=== PATIENT | male | born 1965 | race Caucasian/White ===

== ENCOUNTER 2020-03-15 09:32 | Outpatient (CLI) | payer BC, SELFPAY ==
[2020-03-15 11:03] LABS: Basophils Absolute Auto 0.1 K/mm3 (0.0-0.1); Eosinophils Absolute Auto 0.1 K/mm3 (0-0.3); Eosinophils Percent Auto 1.5 % (0-4.4); Hematocrit 46.1 % (42.0-52.0); Hemoglobin 15.4 g/dL (14.0-18.0); Immature Granulocyte Absolute 0.02 K/mm3 (0.00-0.031); Immature Granulocyte Percent A 0.3 % (0-0.5); Lymphocytes Absolute Auto 2.61 K/mm3 (0.9-3.2); Lymphocytes Percent Auto 38.3 % (18.3-44.2); Mean Corpuscular HGB Conc 33.4 g/dl (32-36); Mean Corpuscular Hemoglobin 29.8 pg (26-34); Mean Corpuscular Volume 89.3 fl (80-100); Mean Platelet Volume 8.6 fl (7.4-10.4); Monocytes Absolute Auto 0.4 K/mm3 (0.1-0.6); Monocytes Percent Auto 5.4 % (2.6-8.5); Neutrophils Absolute Auto 3.6 K/mm3 (1.3-6.7); Neutrophils Percent Auto 53.5 % (45.5-73.1); Platelet Count Result 190 k/mm3 (150-375); Red Blood Count 5.16 M/mm3 (4.6-6.20); White Blood Count 6.8 K/mm3 (4.5-10.0)
[2020-03-15 11:16] LABS: Alanine Aminotransferase 46 U/L (4-50); Albumin Level 4.5 g/dL (3.5-5.1); Alkaline Phosphatase 120 U/L (38-126); Anion Gap 7 mmol/L (8-16); Aspartate Amino Transferase 38 U/L (17-59); Bilirubin,Total 0.5 mg/dL (0.2-1.3); Blood Urea Nitrogen 20 mg/dL (9-20); Calcium 9.5 mg/dL (8.4-10.2); Carbon Dioxide 32 mmol/L (22-30); Chloride 104 mmol/L (98-107); Cholesterol 149 mg/dL (0-200); Estimated Glomerular Filt Rate > 60; Glucose 99 mg/dL (75-110); HDL Direct 40 mg/dL; Potassium 4.7 mmol/L (3.4-5.0); Sodium 143 mmol/L (137-145); Triglycerides 110 mg/dL (<150); Uric Acid 6.2 mg/dL (3.5-8.5)
[2020-03-15 11:26] LABS: LDL Cholesterol Direct 79 mg/dL
[2020-03-15 12:14] LABS: Prostate Specific Antigen 1.7 ng/mL (< OR = 4.0)
== END 2020-03-15 09:33 | disposition home or self-care (01) ==
LOC: ANHLAB 09:35
PROVIDERS: PCP Internal Medicine; Visit Provider Internal Medicine
DX: Z12.5 Encounter for screening for malignant neoplasm of prostate (principal); M1A.09X0 Idiopathic chronic gout, multiple sites, without tophus (tophi); F41.9 Anxiety disorder, unspecified; E78.2 Mixed hyperlipidemia
CPT/HCPCS: 36415; 80053; 80061; 84153; 84443; 84550; 85025; G0103

== ENCOUNTER 2020-07-15 15:37 | Outpatient (CLI) | payer BC, SELFPAY ==
--- NOTE | ~2020-07-15 | XR_ITS ---
EXAMINATION: XR shoulder RT min 2V DATE: 07/15/2020 15:59 INDICATION: Right shoulder pain TECHNIQUE: AP internally and externally rotated, AP oblique externally rotated and axillary views of the right shoulder were obtained. COMPARISON: None FINDINGS: Normal alignment. No fracture.Mild glenohumeral and acromioclavicular osteoarthritis. Right lung is clear with no airspace opacities, pleural effusion or pneumothorax. Soft tissues are unremarkable. IMPRESSION: Mild right acromioclavicular and glenohumeral osteoarthritis. Reviewed, dictated and finalized at location B. IMILE OPERATOR
== END 2020-07-15 15:38 | disposition home or self-care (01) ==
LOC: ANHIMG 15:44
PROVIDERS: PCP Internal Medicine; Visit Provider Internal Medicine
DX: M19.011 Primary osteoarthritis, right shoulder (principal)
CPT/HCPCS: 73030

== ENCOUNTER 2020-07-18 09:00 | Outpatient (CLI) | payer BC, SELFPAY | END 2020-07-18 09:01 | disposition home or self-care (01) | LOC: ANHCOVIDVC 09:00 | PROVIDERS: PCP Internal Medicine | DX: Z23 Encounter for immunization (principal) | CPT/HCPCS: 0001A; 91300 ==

== ENCOUNTER 2020-07-20 06:35 | Outpatient (CLI) | payer BC, SELFPAY ==
--- NOTE | ~2020-07-20 | MR_ITS ---
EXAMINATION: [facility] EXAM DATE: 07/20/2020 07:44 INDICATION: M54.16 - Radiculopathy, lumbar region. Low back and right hip pain. TECHNIQUE: Multi-sequential, multiplanar MR images of the lumbar spine were obtained without contrast . Sagittal T1, T2, T2 fat saturation images. Axial T2 weighted images. There is no prior study for comparison. FINDINGS: There is moderate disc disease L5-S1, mild L3-L5. The conus medullaris terminates at the L1 level and has normal signal intensity and morphology. The vertebral bodies are aligned in the AP dim ension. There are no suspicious marrow signal abnormalities. Paraspinal soft tissue is unremarkable. Level by level evaluation: T12-L1: Disc does not extend beyond the endplate margin. Facet arthropathy: Mild. Neural foraminal stenosis: No stenosis. Central canal stenosis: No stenosis. L1-L2: Disc does not extend beyond the endplate margin. Facet arthropathy: Mild. Neural foraminal stenosis: No stenosis. Central canal stenosis: No stenosis. L2-L3: Disc does not extend beyond the endplate margin. Facet arthropathy: Mild. Neural foraminal stenosis: No stenosis. Central canal stenosis: No stenosis. L3-L4: There is a mild diffuse disc bulge. Facet arthropathy: Mild to moderate. Neural foraminal stenosis: Mild right. Central canal stenosis: No stenosis. L4-L5: There is a mild diffuse disc bulge. Facet arthropathy: Mild to moderate. Neural foraminal stenosis: Mild to moderate bilateral. Central canal stenosis: Mild. L5-S1: There is a mild diffuse disc bulge. Facet arthropathy: Mild to moderate. Neural foraminal stenosis: Mild to moderate bilateral. Central canal stenosis: No stenosis. IMPRESSION: Overall mild to moderate lower lumbar spondylosis. Reviewed, dictated and finalized at location B. [employer]OR OF EMPLOYEE DEVELOPMENT
== END 2020-07-20 06:36 | disposition home or self-care (01) ==
PROVIDERS: PCP Internal Medicine; Visit Provider Internal Medicine
DX: M47.27 Other spondylosis with radiculopathy, lumbosacral region (principal); M48.07 Spinal stenosis, lumbosacral region; M47.25 Other spondylosis with radiculopathy, thoracolumbar region; M48.05 Spinal stenosis, thoracolumbar region
CPT/HCPCS: 72148

== ENCOUNTER → 2020-08-02 02:51 | Outpatient (CLI) | payer BC, SELFPAY ==
[2020-08-02 18:08] LABS: SARS-CoV-2 RNA PCR Negative
== END ==
PROVIDERS: PCP Internal Medicine; Visit Provider Internal Medicine Gastroenterology
DX: Z01.812 Encounter for preprocedural laboratory examination (principal); Z20.822 Contact with and (suspected) exposure to COVID-19
CPT/HCPCS: C9803; U0003; U0005

== ENCOUNTER 2020-08-05 00:35 | Day surgery (SDC) | payer BC, SELFPAY ==
[2020-06-16 10:53] VITALS: BMI 31.9
[2020-08-05 07:09] VITALS: BP 135/66; PULSE 67; RESP 17; TEMP 36.1; O2SAT 97; BMI 31.8
[2020-08-05] MEDS: LACTATED RINGERS 1,000 ML 150 ML IV CONT (07:13)
--- NOTE | 2020-08-05 08:15 | WPDANESEPPF ---
Anes - Initial Pre Proc Eval Procedure: Operation Date: 08/05/20 08:30 Proposed Procedures p Screening Colonoscopy - Iker Zamora MD Date/Time: 08/05/20 08:15 Surgeon: Iker Zamora MD Pre Op Diagnosis: Neoplasm Screening/ Hx Colon Polyps Patient Data Age: 55 Gender: M Height: 5 ft 11 in Weight: 103.8 kg Last Vital Signs Temp 96.9 F L 08/05/20 07:09 Pulse 67 08/05/20 07:09 Resp 17 08/05/20 07:09 BP 135/66 08/05/20 07:09 Pulse Ox 97 08/05/20 07:09 Allergies Allergy/AdvReac Type Severity Reaction Status Date / Time No Known Allergies Allergy Verified 08/05/20 07:08 Home Medications Medication Instructions Recorded Confirmed Type allopurinol 300 mg tablet 300 mg PO DAILY #90 tablet 09/11/19 08/05/20 Rx omeprazole 40 mg capsule,delayed See Rx Instructions .ROUTE 07/11/20 08/05/20 Rx release .COMPLEX #90 each Patient hx anesthesia problems: none Family hx anesthesia problems: none PMFSH Past Medical History Medical History (Updated 08/01/20 @ 16:19 by LILI Harmon) Anal fissure Anal skin tag Anxiety Benign non-nodular prostatic hyperplasia with lower urinary tract symptoms Encounter for other specified surgical aftercare Facet arthritis of lumbar region Gastroesophageal reflux disease Gout of multiple sites Hypersomnia Lumbar radiculopathy Major depressive disorder, recurrent episode, unspecified Mixed hyperlipidemia Obesity (BMI 35.0-39.9 without comorbidity) Paraspinal muscle spasm Right rotator cuff tear Right shoulder pain Sciatica Shoulder pain Tension headache Vaccine counseling Surgical History Surgical History (Updated 08/01/20 @ 13:24 by LILI Harmon) S/P rotator cuff repair Family History Family History Father Malignant neoplasm of prostate Social History Social History (Updated 08/01/20 @ 10:25 by Mackenzie Spear) Smoking status: Never smoker Alcohol intake: current Living arrangements: with family Gender identity (if verbalized by the patient): Male Spiritual care concerns: No Anes - Eval Final PreProcedure Day of Procedure 08/05/20 08:15 Patient weight: overweight Heart: regular rate and rhythm Lungs: clear to auscultation Airway: Mallampati scale class II Neurological: alert and oriented Last oral intake: >/= 8 hours ASA classification: II Emergent: no Anesthetic plan: proceed Anesthesia type and monitoring: general GIVS and standard monitoring Informed Consent: The patient's anesthetic plan and its attendant risks and benefits were discussed with the patient/family/POA. Questions were solicited and answers provided to the satisfaction of the patient/family/POA.
--- NOTE | 2020-08-05 08:19 | PM.HPGS ---
History of Present Illness History of Present Illness Consent: Risks, benefits, and alternatives have been discussed and questions answered. Patient agrees to proceed with procedure. Chief complaint: Neoplasm Screening/ Hx Colon Polyps Narrative: Tay Flores is a 55 year old male with colon polyps about 6 years ago. Review of Systems Constitutional: Constitutional: Denies headache(s) and Denies weakness Eyes: Eyes: Denies blurry vision ENT: Reports Normal hearing present, Denies headache(s) and Denies neck pain Cardiovascular: Cardiovascular: Denies chest pain and Denies dyspnea Respiratory: Respiratory: Denies dyspnea Gastrointestinal: Gastrointestinal: Reports no additional gastrointestinal complaints Genitourinary: Genitourinary: Denies dysuria Musculoskeletal: Musculoskeletal: Denies neck pain Integumentary/Breasts: Skin/Breast: Denies dry skin Neurologic: Reports Normal hearing present, Denies headache(s) and Denies weakness Psychiatric: Psychiatric: Denies anxiety Endocrine: Endocrine: Denies change in body appearance Hematologic/Lymphatic: Hematologic/Lymphatic: Denies easy bleeding Allergic/Immunologic: Allergic/Immunologic: Denies urticaria PMF Past Medical History Medical History (Updated 08/05/20 @ 08:20 by Iker Zamora MD) Adenomatous colon polyp Anal fissure Anal skin tag Anxiety Benign non-nodular prostatic hyperplasia with lower urinary tract symptoms Encounter for other specified surgical aftercare Facet arthritis of lumbar region Gastroesophageal reflux disease Gout of multiple sites Hypersomnia Lumbar radiculopathy Major depressive disorder, recurrent episode, unspecified Mixed hyperlipidemia Obesity (BMI 35.0-39.9 without comorbidity) Paraspinal muscle spasm Right rotator cuff tear Right shoulder pain Sciatica Shoulder pain Tension headache Vaccine counseling Surgical History Surgical History (Updated 08/01/20 @ 13:24 by LILI Harmon) S/P rotator cuff repair Family History Family History Father Malignant neoplasm of prostate Social History Social History (Updated 08/01/20 @ 10:25 by Mackenzie Spear) Smoking status: Never smoker Alcohol intake: current Living arrangements: with family Gender identity (if verbalized by the patient): Male Spiritual care concerns: No Meds Home Medications and Allergies Home Medications Medication Instructions Recorded Confirmed Type allopurinol 300 mg tablet 300 mg PO DAILY #90 tablet 09/11/19 08/05/20 Rx omeprazole 40 mg capsule,delayed See Rx Instructions .ROUTE 07/11/20 08/05/20 Rx release .COMPLEX #90 each Allergies Allergy/AdvReac Type Severity Reaction Status Date / Time No Known Allergies Allergy Verified 08/05/20 07:08 Vital Signs Vital Signs - 24 hr 08/05/20 07:09 Temperature 96.9 F L Pulse Rate 67 Respiratory Rate 17 Blood Pressure 135/66 Pulse Oximetry 97 Exam Const: General: comfortable and no acute distress HENMT: General nose exam: Normal nares present Eyes: General: appearance normal, both eyes and all related structures Neck: Neck: no JVD Resp: Auscultation: clear to auscultation bilaterally Cardio: Rate: regular rate Rhythm: regular rhythm GI: Inspection: non-distended GI Palp: Yes Soft to palpation Skin: General skin exam: normal color Neuro: General: gait normal Speech: normal speech Extrem: General: normal to inspection Psych: Mental Status: mental status grossly normal Assessment and Plan Assessment and plan (1) Adenomatous colon polyp: Code(s): D12.6 - Benign neoplasm of colon, unspecified Status: Acute Assessment and Plan: proceed with colonoscopy
[2020-08-05 08:46] VITALS: BP 106/79; PULSE 65; RESP 23; O2SAT 98
[2020-08-05 08:56] VITALS: BP 112/68; PULSE 58; RESP 15; O2SAT 97
[2020-08-05 09:06] VITALS: BP 109/70; PULSE 54; RESP 15; O2SAT 100
== END 2020-08-05 09:15 | disposition home or self-care (01) ==
PROVIDERS: PCP Internal Medicine; Visit Provider Internal Medicine Gastroenterology
PROC: 0DJD8ZZ Inspection of Lower Intestinal Tract, Via Natural or Artificial Opening Endoscopic (ICD-10-PCS; CPT 45378; principal; 2020-08-05 08:30)
DX: Z12.11 Encounter for screening for malignant neoplasm of colon (principal); D12.5 Benign neoplasm of sigmoid colon; K64.8 Other hemorrhoids; K21.9 Gastro-esophageal reflux disease without esophagitis; E66.9 Obesity, unspecified; Z68.31 Body mass index [BMI] 31.0-31.9, adult
CPT/HCPCS: 45385; 88305; J2704; J7120

== ENCOUNTER 2020-08-08 09:15 | Outpatient (CLI) | payer BC, SELFPAY | END 2020-08-08 09:16 | disposition home or self-care (01) | LOC: ANHCOVIDVC 09:15 | PROVIDERS: PCP Internal Medicine | DX: Z23 Encounter for immunization (principal) | CPT/HCPCS: 0002A; 91300 ==

== ENCOUNTER → 2020-08-16 17:58 | Outpatient (CLI) | payer BC, SELFPAY ==
--- NOTE | ~2020-08-16 | MR_ITS ---
EXAMINATION: MR shoulder RT wo con DATE: 08/16/2020 19:04 INDICATION: Right shoulder pain. TECHNIQUE: Magnetic resonance imaging (MRI) of the right shoulder was performed without intravenous c ontrast. Sequences included axial PD-weighted FS FSE, coronal oblique PD-weighted FS FSE and T2-weigh anthony FS FSE, and sagittal oblique T2-weighted FS FSE and T1-weighted FSE. COMPARISON: Right shoulder radiographs 07/15/2020 FINDINGS: Coracoacromial arch: The acromion undersurface is curved in morphology with anterior hook (type III). There is severe acro mioclavicular joint osteoarthritis including inferiorly directed osteophytes. There is mild subacromi al/subdeltoid bursitis. Rotator cuff: There is severe supraspinatus and infraspinatus tendinopathy. There is a bursal sided partial-thickne ss tear of anterior supraspinatus tendon measuring 12 mm anterior to posterior by 3 mm proximal to di stal by 60% tendon thickness. Teres minor tendon is normal. There is severe subscapularis tendinopath y. There is no asymmetric fatty atrophy of the rotator cuff muscle bellies. Biceps tendon and glenoid labrum: Biceps tendon is in bicipital groove. There is mild intra-articular biceps tendinopathy. There is a t ear of posterior labrum from 8:00 to 10:00. Fluid: There is no glenohumeral joint effusion. Bones/cartilage: There is shallow partial-thickness cartilage loss of glenoid, worst at the central articular surface. There is cartilage surface irregularity of humeral head. IMPRESSION: 1. Severe rotator cuff tendinopathy with bursal sided partial-thickness tear of supraspinatus tendon. 2. Mild glenohumeral joint chondrosis. 3. Severe acromioclavicular joint osteoarthritis. 4. Mild intra-articular biceps tendinopathy. 5. Mild subacromial/subdeltoid bursitis. Reviewed, dictated and finalized at location A.
== END ==
PROVIDERS: Visit Provider Nurse Practitioner Family
DX: S43.491A Other sprain of right shoulder joint, initial encounter (principal); M75.51 Bursitis of right shoulder
CPT/HCPCS: 73221

== ENCOUNTER 2021-05-09 08:48 | Outpatient (RCR) | payer BC, SELFPAY ==
[2021-05-09] MEDS: ACETAMINOPHEN 325 MG TABLET 650 MG PO (15:35)
[2021-05-09] MEDS: diphenhydrAMINE HCl CAP 25 MG CAPSULE PO (15:36)
[2021-05-09] MEDS: FAMOTIDINE 20 MG TABLET PO (15:36)
[2021-05-09 15:39] VITALS: BP 110/67; PULSE 95; RESP 20; TEMP 36.2; O2SAT 96
[2021-05-09 16:42] VITALS: BP 96/56
== END 2021-05-09 16:00 | disposition home or self-care (01) ==
LOC: AMCINF 08:48
PROVIDERS: PCP Nurse Practitioner; Visit Provider Internal Medicine Hematology & Oncology
DX: U07.1 COVID-19 (principal); I10 Essential (primary) hypertension
CPT/HCPCS: A9270; M0243; Q0244

== ENCOUNTER 2021-06-29 15:02 | Outpatient (CLI) | payer BC, SELFPAY ==
--- NOTE | 2021-06-29 15:00 | ECG_ITS ---
Measurements Intervals [place] Rate: 75 P: 66 SC: 175 QRS: 23 QRSD: 93 T: 38 QT: 362 QTc: 405 Interpretive Statements SINUS RHYTHM BASELINE ARTIFACT- I, II, III, AVR, AVL, AVF NORMAL ECG Electronically Signed On 06-29-2021 15:31:59 BULK DELIVERY DRIVER by Dave Olivia D.O.
== END 2021-06-29 15:03 | disposition home or self-care (01) ==
PROVIDERS: PCP Internal Medicine; Visit Provider Orthopaedic Surgery
DX: Z01.810 Encounter for preprocedural cardiovascular examination (principal); I10 Essential (primary) hypertension
CPT/HCPCS: 93005

== ENCOUNTER 2021-07-05 01:17 | Day surgery (SDC) | payer BC, SELFPAY ==
[2021-06-28 14:52] VITALS: BMI 30.7
--- NOTE | 2021-06-28 15:29 | PC.NURSE ---
Report to the Outpatient Waiting Room, entrance under the green pavilion located off [facility], at time __8:30 on date _07/05/21. OR Time: 10:30. IF THERE IS ANY ADJUSTMENT IN YOUR SURGERY TIME, YOU WILL BE NOTIFIED THE DAY BEFORE ON 07/04/21 AFTERNOON. - You and your visitor will be asked a series of questions to screen for COVID 19 for your protection. - A mask is required within the hospital. Preoperative COVID Testing Requirements: No COVID Test needed if: (proof is required; if not received patient will have Rapid Test prior to entry) - Patient has received COVID Vaccine at least 14 days prior to procedure date or - Patient has positive COVID test result within last 90 days of surgery date. COVID Test needed if above criteria is not met If not COVID vaccinated a COVID test must be conducted within 72 hours of surgery and patient is asked to isolate self from time of testing until procedure. You will go to the [facility] for your COVID testing. The [facility] is located at the corner of [address] [facility]. You will only be called if COVID results are positive and your surgeon may reschedule your elective surgery date. Patients may have clear liquids (water, carbonated beverages, clear teas, apple juice) until 3 hours prior to surgery with a maximum of 20 ounces. - No food from midnight until time of surgery - Infants may have breast milk until 4 hours before surgery, infant formula 6 hours prior to surgery. - Children will be allowed to drink immediately following surgery. If applicable, please bring a bottle or sippy cup to assist with drinking. Juice, water, soda, and popsicles are readily available. For infants on formula, please bring formula the day of surgery. Pacifiers are allowed. Take the following medications with a SIP of water the morning of surgery: __FUOXETINE Medications to discontinue per physician N/A Date to take last dose__N/A Please no make-up, nail andorran, hairspray, perfume, deodorant, or body powder the day of surgery. No jewelry (including any body piercings) or valuables the day of surgery, leave them at home. Please take a shower or bath the night before, or the morning of, surgery with an antibacterial soap [CHLORHEXIDINE (HIBICLENS)]. Wear comfortable, loose fitting clothing. Children are encouraged to wear pajamas. - Jewelry must be removed prior to entering the operating room. Rings and piercings that are not removed may be cut off. - The hospital will not accept responsibility for valuables. - Please leave all valuables, including medications, at home the day of surgery. If you are going home after surgery, a licensed delivery driver/supervisor must drive you home. - NO public transportation without another adult. - We recommend that an adult stay with you for 24 hours following discharge. - We also recommend that you do not drive, make important decision, drink alcoholic beverages, or take any drugs that were not prescribed by your health care provider for at least 24 hours after your discharge time. For Pediatric surgeries, we recommend two adults accompany the child home (only one inside the building at this time). One visitor will be allowed to accompany the patient into the hospital. Patients visitor will be instructed to remain with patient at all times or leave the building. We will allow the visitor to come back to the postoperative area when patient is ready. Follow any additional instructions given to you from your surgeon. Telephone instructions given to _FREYA and asked if any additional questions and then verbalized understanding. Patient advised to call surgeon office or pre surgery nurse liaison [phone] if any additional questions.
[2021-07-05] VITALS (7 sets, daily range): BP systolic 109–135; BP diastolic 51–78; PULSE 54–70; RESP 15–18; TEMP 36.1–36.4; O2SAT 95–100
--- NOTE | 2021-07-05 07:24 | WPDHPUPDATE1 ---
History and Physical Update Update Date/Time: 07/05/21 07:24 History and Physical has been reviewed, including an updated exam of the patient. There are NO changes in the patient's condition. Risks, benefits, and alternatives have been discussed and questions answered. Patient agrees to proceed with procedure.
[2021-07-05] MEDS: CELECOXIB 200 MG CAPSULE PO (09:00)
[2021-07-05] MEDS: ACETAMINOPHEN 500 MG TABLET 1000 MG PO (09:00)
[2021-07-05] MEDS: LACTATED RINGERS 1,000 ML 30 ML IV CONT ×2 (09:08→12:35)
--- NOTE | 2021-07-05 09:38 | WPDANESEPPF ---
Anes - Initial Pre Proc Eval Procedure: Operation Date: 07/05/21 10:30 Proposed Procedures p Right Rotator Cuff Repair - Levi Gant MD Date/Time: 07/05/21 09:38 Surgeon: Levi Gant MD Pre Op Diagnosis: right rotator cuff tear Patient Data Age: 55 Gender: M Height: 1.8 m Weight: 96.7 kg Last Vital Signs Temp 36.4 C L 07/05/21 09:09 Pulse 70 07/05/21 09:09 Resp 16 07/05/21 09:09 BP 127/77 07/05/21 09:09 Pulse Ox 98 07/05/21 09:09 Allergies Allergy/AdvReac Type Severity Reaction Status Date / Time No Known Allergies Allergy Verified 07/05/21 08:46 Home Medications Medication Instructions Recorded Confirmed Type allopurinol 300 mg tablet 300 mg PO DAILY 90 Days #90 tablet 04/04/21 07/05/21 Rx atorvastatin 80 mg tablet 80 mg PO DAILY #90 tablet 04/04/21 07/05/21 Rx fluoxetine 10 mg capsule 10 mg PO DAILY #90 cap 04/04/21 07/05/21 Rx lisinopril 20 mg tablet 20 mg PO DAILY #30 tablet 04/04/21 07/05/21 Rx omeprazole 40 mg capsule,delayed See Rx Instructions .ROUTE 05/31/21 07/05/21 Rx release .COMPLEX #90 each Patient hx anesthesia problems: none Family hx anesthesia problems: none Results Review: All pre-operative results and documents have been reviewed as part of the pre-operative evaluation. [facility] Past Medical History Medical History Adenomatous colon polyp Anal fissure Anal skin tag Anxiety Benign non-nodular prostatic hyperplasia with lower urinary tract symptoms Encounter for other specified surgical aftercare Facet arthritis of lumbar region Gastroesophageal reflux disease Gout of multiple sites Hypersomnia Hypertension Lumbar radiculopathy Major depressive disorder, recurrent episode, unspecified Mixed hyperlipidemia Obesity (BMI 35.0-39.9 without comorbidity) Paraspinal muscle spasm Right rotator cuff tear Right shoulder pain Sciatica Shoulder pain Tension headache Vaccine counseling Surgical History Surgical History S/P rotator cuff repair Family History Family History Father Malignant neoplasm of prostate Social History Social History Second hand tobacco smoke exposure: No Alcohol intake: current Alcohol use details: social Substance use: never Substance use type: does not use Living arrangements: with family Gender identity (if verbalized by the patient): Male Spiritual care concerns: No Anes - Eval Final PreProcedure Day of Procedure 07/05/21 09:38 Patient weight: overweight Heart: regular rate and rhythm Lungs: clear to auscultation Airway: Mallampati scale class II Neurological: alert and oriented Last oral intake: >/= 8 hours ASA classification: III Emergent: no Anesthetic plan: proceed Anesthesia type and monitoring: general LMA and standard monitoring Results Review: All pre-operative results and documents have been reviewed as part of the pre-operative evaluation. Informed Consent: The patient's anesthetic plan and its attendant risks and benefits were discussed with the patient/family/POA. Questions were solicited and answers provided to the satisfaction of the patient/family/POA.
--- NOTE | 2021-07-05 10:44 | WPDANESPNB ---
Anes - Peripheral Nerve Block Date/Time: 07/05/21 10:44 I have discussed with the patient/family/POA the placement of a peripheral nerve block for post-operative pain management, including associated risks, benefits, complications, and side effects. Alternative methods of post-operative analgesia were detailed. Questions were solicited and answers provided to the satisfaction of the patient/family/POA. Time-Out: A pre-procedural Time-Out was completed immediately before starting the procedure and confirmed: Patient Identification, Site, Procedure, Patient Position and the Availability of Requisite Equipment. Clinical Indications: Acute post-operative pain management requested by the operative surgeon. Nerve Block Insertion Note Anes-nerve block: interscalene right Patient position: other (sitting) Skin prep: chlorhexidine Needle: 22 gauge, stimulating, insulated echogenic needle. Needle length: 50 mm Technique: nerve stimulation lost at (mA) and ultrasound Technique comment: mid2mg [id number] Injectate: bupivacaine 0.5% with epi 5 mcg/ml (30ml no epi) and dexamethasone (mg) (4) Observations: tolerated well Complications: none Procedure start time:: 1024 Procedure end time:: 1031
[2021-07-05] MEDS: ceFAZolin 2 GM/D5W 50 ML 2 GM/50 ML BAG IVPB (10:49)
--- NOTE | 2021-07-05 12:43 | W.PM.PROC2 ---
Procedure Note - Detailed Date of Procedure 07/05/21 Pre-op Diagnosis right rotator cuff tear Post-op Diagnosis same Procedure Performed REPAIR RIGHT ROTATOR CUFF Surgeon Levi Gant MD Anesthesia general Description of Procedure THE PATIENT WAS TAKEN TO THE OPERATING ROOM AND THEN INTUBATED AND PLACED IN THE BEACH CHAIR POSITION. THE RIGHT UPPER EXTREMITY WAS PREPPED AND DRAPED IN THE NORMAL STERILE FASHION. AN INCISION WAS MADE IN BETWEEN THE NIKOLAS-LATERAL ACROMION AND THE AC JOINT. THE FASCIA WAS IDENTIFIED. NEXT A MINI OPEN INCISION WAS MADE THROUGH THE DELTOID MUSCLE EXPOSING THE SUBACROMIAL SPACE. A LIMITED ACROMIOPLASTY WAS PREFORMED. A LARGE OSTEOPHYTE WAS REMOVED FROM THE UNDERSURFACE OF THE AC JOINT. THE ROTATOR CUFF WAS IDENTIFIED. THERE WAS A FULL THICKNESS TEAR. IT MEASURED APPROXIMATELY 1 CM X 1 CM. THE GREATER TUBEROSITY WAS DEBRIDED TO BLEEDING BONE. ARTHREX 5.5 SUTURE ANCHOR WAS PLACED IN TO GOOD BONE AND HAD VERY GOOD BITE. AMANDA-HUMBERTO TYPE REPAIR WAS DONE TO THE ROTATOR CUFF AND THERE WAS GOOD APPROXIMATION TO THE GREATER TUBEROSITY. THE REPAIR WAS EXCELLENT. THERE WAS NO IMPINGEMENT ON THE REPAIR FROM THE ACROMION WITH RANGE OF MOTION. THE WOUND WAS IRRIGATED WITH COPIOUS AMOUNTS OF ANTIBIOTIC SOLUTION AND 1/2 STRENGTH H2O2. THE DELTOID MUSCLE WAS REPAIRED WITH #2 FIBER WIRE AND 0 VICRYL SUTURE. THE SUBCUTANEOUS LAYER WAS APPROXIMATED WITH 2-0 VICRYL. THE SKIN WAS APPROXIMATED WITH 3-0 QUIL AND DERMABOND. STERILE DRESSING WAS APPLIED. PATIENT WAS EXTUBATED. Estimated Blood Loss 20 Complications No immediate complications Condition stable Disposition PACU
== END 2021-07-05 14:40 | disposition home or self-care (01) ==
PROVIDERS: PCP Internal Medicine; Visit Provider Orthopaedic Surgery
PROC: (CPT 23420; principal; 2021-07-05 10:30)
DX: M75.101 Unspecified rotator cuff tear or rupture of right shoulder, not specified as traumatic (principal); G89.18 Other acute postprocedural pain; I10 Essential (primary) hypertension; K21.9 Gastro-esophageal reflux disease without esophagitis; F41.8 Other specified anxiety disorders; E78.2 Mixed hyperlipidemia
CPT/HCPCS: 23412; 64415; A9270; C1713; J0690; J1100; J2250; J2405; J2704; J2710; J3010; J7120

== ENCOUNTER 2022-07-29 12:04 | Emergency (ER) | payer BC, SELFPAY ==
[2022-07-29 12:12] VITALS: BP 136/65; PULSE 75; RESP 18; TEMP 36.7; O2SAT 100
--- NOTE | 2022-07-29 12:44 | ED.GENADULT ---
HPI - General Adult General Chief complaint: Eye Problems Stated complaint: FB in right eye Source: patient Mode of arrival: ambulatory Limitations: no limitations History of Present Illness HPI narrative: Patient presents for evaluation of foreign body in the right eye. He indicates he is working on his car 3 days ago when he felt a metallic fragment going to the right eye. He reports some tenderness when he palpates the globe. He reports worsening redness as of today. Denies visual disturbance. He does have tearing. He is up-to-date on tetanus vaccination. He is not diabetic. He does not wear glasses or contacts. Related Data Allergies Allergy/AdvReac Type Severity Reaction Status Date / Time No Known Allergies Allergy Verified 07/29/22 12:10 Review of Systems Review of Systems: CONSTITUTIONAL: Denies fever, chills, or sweats. EYES: Reports sensation of foreign body in the right eye with associated redness and tearing ENT: Denies rhinorrhea, congestion, sore throat, or otalgia. CARDIOVASCULAR: Denies chest pain, palpitations, or edema. RESPIRATORY: Denies cough or dyspnea. GASTROINTESTINAL: Denies abdominal pain, nausea, vomiting, or diarrhea. GENITOURINARY: Denies dysuria or hematuria. SKIN: Denies rash or itching. MUSCULOSKELETAL: Denies back pain, joint pain, or myalgia. NEUROLOGIC: Denies headache, numbness, dizziness, or weakness. PSYCHIATRIC: Denies anxiety or depression. [facility] Past Medical History Medical History Adenomatous colon polyp Anal fissure Anal skin tag Anxiety Benign non-nodular prostatic hyperplasia with lower urinary tract symptoms Encounter for other specified surgical aftercare Facet arthritis of lumbar region Gastroesophageal reflux disease Gout of multiple sites Hypersomnia Hypertension Left shoulder pain Lumbar radiculopathy Major depressive disorder, recurrent episode, unspecified Mixed hyperlipidemia Obesity (BMI 35.0-39.9 without comorbidity) Paraspinal muscle spasm Right rotator cuff tear Right shoulder pain Sciatica Shoulder pain Tension headache Vaccine counseling Surgical History Surgical History S/P rotator cuff repair Family History Family History Father Malignant neoplasm of prostate Social History Social History Smoking status: Never smoker Second hand tobacco smoke exposure: No Alcohol intake: current Alcohol use details: social Substance use: never Substance use type: does not use Lack of Transportation: No Lack of Food: Never True Current Housing: I Have Housing Concerned About Future Housing: No Difficulty Paying Gas/Electric Bills: No Difficulty Paying for Meds: No Currently Unemployed: YES Education: Bachelor's Degree Difficulty w/ Childcare or Family Care: No Living arrangements: with family Gender identity (if verbalized by the patient): Male Spiritual care concerns: No Exam Narrative: GENERAL: Well-appearing, well-nourished, and in no acute distress. HEAD: Normocephalic, atraumatic. EYES: PERRLA and EOMI. right conjunctival injection. There is a foreign body at the 9 o'clock position of the right eye consistent with reported history of metal in the eye ENT: Nares clear, no rhinorrhea or epistaxis. Mucous membranes moist. Oropharynx without tonsillar hypertrophy exudate or other lesions. Bilateral TMs pearly torres nonbulging NECK: Supple. No adenopathy or masses. No carotid bruits or JVD CHEST: Clear to auscultation. No respiratory distress. No wheezes rales or rhonchi HEART: Regular rate and rhythm. No murmur heard. Normal peripheral pulses. ABDOMEN: Soft, nontender, nondistended, normal active bowel sounds. EXTREMITIES: Normal range of motion. No edema. SKIN: Warm,
== END 2022-07-29 13:22 | disposition home or self-care (01) ==
PROVIDERS: Emergency Provider Nurse Practitioner
DX: T15.91XA Foreign body on external eye, part unspecified, right eye, initial encounter (principal); X58.XXXA Exposure to other specified factors, initial encounter; K21.9 Gastro-esophageal reflux disease without esophagitis; M10.9 Gout, unspecified; I10 Essential (primary) hypertension; E78.2 Mixed hyperlipidemia; E66.9 Obesity, unspecified; Z68.29 Body mass index [BMI] 29.0-29.9, adult; N40.1 Benign prostatic hyperplasia with lower urinary tract symptoms
CPT/HCPCS: 65205; 99213; A9270; G0463

== ENCOUNTER 2025-03-12 10:22 | Outpatient (CLI) | payer OTHER, SELFPAY ==
--- NOTE | ~2025-03-12 | US_ITS ---
EXAMINATION: US scrotum doppler, 03/12/2025 10:43 CDT HISTORY: Y Comparison: None Technique: Carter-scale and color Doppler images were obtained of the testes with spectral analysis to document arterial and venous flow. Findings: Right Testicle:Right testicle 4.8 x 2 x 3.3 cm, normal parenchyma, normal flow. Right Epidiymis:Unremarkable. Normal flow. Left Testicle: Left testicle 4.7 x 1.9 x 3.5 cm, normal parenchyma, normal flow. Left Epidiymis: Unremarkable. Normal flow. Hydrocele: Moderate simple right hydrocele. A small simple left hydrocele. . Varicocele: None Scrotum: Unremarkable. No skin thickening. Impression: Bilateral hydroceles Reviewed, dictated and finalized at location P. Impression: Bilateral hydroceles
--- OUTSIDE RECORDS SUMMARY | 2025-03-12 10:52 | XMS_ITS | Clinical Summary ---
Author Organization [facility] Address [facility] [place] [address] Care Team Providers Care Steam Tender Name Role Phone Unavailable Primary Care Provider Unavailabl e Social History Tobacco Use Types Packs/Day Years Used Date Smoking Tobacco: Never Assessed Sex and Gender Information Value Date Recorded Sex Assigned at Not on file Legal Sex Male 5:42 PM CDT Gender Identity Not on file Sexual Orientation Not on file Plan of Treatment Health Maintenance Due Date Last Done Comments Colorectal Cancer Screening Colonoscopy (10 Years) 1964 Annual Physical 08/02/1967 Hepatitis C 1982 DTaP, Tdap and Td Vaccines ( 1 - Tdap) 08/02/1983 Pneumococcal Vaccine: 50+ Ye ars (1 of 1 - PCV) 2014 Zoster Vaccines (1 of 2) 2014 COVID-19 Vaccine ( - 2024-2 6 season) 2025 Influenza Adult (#1) 2025 RSV Immunization or 60+ Years (1 - 1-dose 75+ series) 08/02/2039 Hepatitis A Vaccines Aged Out No long er eligible based on patient's age to complete this topic Meningococcal B Vaccine Aged Out No l onger eligible based on patient's age to complete this topic Meningococcal Vaccine Aged Out No dorothy carmen eligible based on patient's age to complete this topic RSV Immunizations Under 20 Months Aged Out No longer eligible based on patient's age to complete this topic
--- OUTSIDE RECORDS SUMMARY | 2025-03-12 10:52 | XMS_ITS | Clinical Summary ---
Author Organization [facility] Address [address] [place] [address] Care Team Providers Care Healthcare Applications Analyst Name Role Phone Drew Biswas MD Primary Care Provider [phone] Source Comments [facility],non-owned Affiliates and Associated Physician Practices is amultiple site organization consisting of ambulatory clinics and hospital sitesin [place], [place], [place] and [place]. This disclosure is being madepursuant to the Care Everywhere program and may not contain all information available regarding this patient. Last updated 18.[facility] Medications * Be aware that medications may not be up to date on this document. Alwaysverify current medications with the patient. moxifloxacin (Vigamox) 0.5 % ophthalmic solution Instill 1 (one) drop into right eye 4 times daily 3 mL 07/30/2022 Active Active Problems No known active problems Social History Tobacco Use Types Packs/Day Years Used Date Smoking Tobacco: Never Assessed Sex and Gender Information Value Date Recorded Sex Assigned at Not on file Legal Sex Male 4:07 AM CDT Gender Identity Not on file Sexual Orientation Not on file Plan of Treatment Health Maintenance Due Date Last Done Comments COLOGUARD (AGES 45-75) - COL ON CA SCREENING 1964 COLON MONITORING 1964 COLONOSCOPY - COLON CA SCREENING 1964 CT COLONOGRAPHY - COLON CA SCREENING 1964 Colorectal Cancer Screening 1964 FIT - COLON CA SCREENING 1964 FLEX SIG - COLON CA SCREENING 1964 LIPID TESTING 1964 HIV SCREENING 08/02/1979 HEPATITIS C SCREENING 07/28/1982 DTAP/TDAP/TD VACCINES (1 - Tdap) 08/02/1983 PNEUMOCOCCAL VACCINE 50+ (1 of 1 - PCV) 2014 ZOSTER VACCINE (1 of 2) 2014 DEPRESSION SCREENING 05/13/2024 COVID-19 VACCINE (1 - 2023-2 5 season) 2025 INFLUENZA VACCINE (#1) 2025 Respiratory Syncytial Virus (RSV) Vaccine Pt: or over 60 yrs (1 - 1-dose 75+ series) 08/02/2039 HEPATITIS B VACCINE Aged Out No longe r eligible based on patient's age to complete this topic HIB VACCINE Aged Out No longer eligi ble based on patient's age to complete this topic HPV VACCINE Aged Out No longer eligi ble based on patient's age to complete this topic MENINGOCOCCAL (Group B) VACC INE SHARED DECISION-MAKING Aged Out No longer eligibl e based on patient's age to complete this topic MENINGOCOCCAL GROUPS A/C/Y/W VACCINE Aged Out No longer eligible b ased on patient's age to complete this topic Insurance [facility] Care Teams Healthcare Applications Analyst Relationship Specialty Start Date End Date Drew Biswas MD [address] [place] [address] PCP - General 03/05/19
--- OUTSIDE RECORDS SUMMARY | 2025-03-12 10:52 | XMS_ITS | Clinical Summary ---
Author Organization [facility] Address [facility] [place] [address] Care Team Providers Care Yardage Tufting Machine Operator Name Role Phone Lucie Gordon MD Primary Care Provider Rhett Mahmood DO Unavailable [phone] Judah Alcala MD Unavailable [phone] Allergies No known active allergies Medications atorvastatin (LIPITOR) 80 mg tabletIndicatio ns:hyperlipidem ia Take 1 tablet (80 mg total) by mouth daily before breakfast 9 Active FLUOXETINE 10 mg capsuleIndicati ons:Anxiety with Depression Take 1 tablet/capsule (10 mg total) by mouth daily before breakfast 9 Active allopurinoL (ZYLOPRIM) 300 mg tabletIndicatio ns:prevention of acute gout attack Take 1 tablet (300 mg total) by mouth daily before breakfast Active lisinopriL (PRINIVIL,ZESTR IL) 40 mg tabletIndicatio ns:hypertension Take 1 tablet (40 mg total) by mouth daily before breakfast 3 Active omeprazole (PriLOSEC) 10 mg capsule Take 1 capsule (10 mg total) by mouth daily Active Active Problems Problem Noted Date Diagnosed Date Anal fissure 09/11/2019 Anal pain 06/23/2019 Overview (06/23/2019): Added automatically from request for surgery [id number] Surgical History Surgery Date Site/Laterality Comments COLONOSCOPY 05/13/2022 - 05/12/2023 ANAL SPHINCTEROTOMY 05/13/2020 - 05/12/2021 CYSTOSCOPY 05/13/2019 - 05/12/2020 EXAMINATION UNDER ANESTHESIA 07/13/2019 Exam under anesthesia and completion lateral internal sphincterotomy ROTATOR CUFF REPAIR 05/13/2020 - 05/12/2021 Medical History Medical History Date Comments Gout Depression Anxiety GERD (gastroesophageal reflux disease) Hyperlipidemia HTN (hypertension) Family History Medical History Relation Name Comments No Known Problems Father No Known Problems Mother Anesthesia problems Neg Hx Relation Name Status Comments Father Mother Social History Tobacco Use Types Packs/Day Years Used Date Smoking Tobacco: Never Smokeless Tobacco: Never Alcohol Use Standard Drinks/Week Comments Yes 0 (1 standard drink = 0.6 oz pur e alcohol) AUDIT-C Answer Date Recorded Q1: How often do you have a drink containing alcohol? Never 04/26/2023 Q2: How many drinks containi ng alcohol do you have on a typical day when you are drinking? Patient does not drink Q3: How often do you have si x or more drinks on one occasion? Never 04/26/2023 Personal Safety Answer Date Recorded Have you ever been in or are you currently in a harmful physical or emotional relationship or is someone making you feel afraid or unsafe? Denies 04/26/2023 Sex and Gender Information Value Date Recorded Sex Assigned at Not on file Legal Sex Male 12:41 PM TREE AND SHRUB WORKER Gender Identity Not on file Sexual Orientation Not on file Obstetrics History Last Filed Vital Signs Vital Sign Reading Time Taken Comments Blood Pressure 104/60 04/26/2023 7:50 AM TREE AND SHRUB WORKER Pulse 53 04/26/2023 7:50 AM TREE AND SHRUB WORKER Temperature 36.4 C (97.5 F) 04/26/2023 7:50 AM TREE AND SHRUB WORKER Respiratory Rate 16 04/26/2023 8:10 AM TREE AND SHRUB WORKER Oxygen Saturation 94% 04/26/2023 7:50 AM TREE AND SHRUB WORKER Inhaled Oxygen Concentration - - Weight 106.6 kg (235 lb) 04/01/2023 5:25 PM TREE AND SHRUB WORKER Height 180.3 cm (5' 11) 04/01/2023 5:25 PM TREE AND SHRUB WORKER Body Mass Index 32.78 04/01/2023 5:25 PM TREE AND SHRUB WORKER Plan of Treatment Health Maintenance Due Date Last Done Comments Colon Cancer Screening-Colonoscopy 1964 Depression Screening 1964 Hepatitis C Screening 1964 Prostate Cancer Screening-PSA 1964 DTaP/Tdap/Td Vaccine (1 - Tdap) 08/02/1975 Hepatitis B Screening 1982 Regular Well Visit/Exam 18-64 1982 Zoster Vaccine (1 of 2) 2014 Influenza Vaccine (#1) 2025 3, 05/25/2012 Pneumococcal vaccine <65 Aged Out No longer eligible based on patient's age to complete this topic Insurance [facility] Care Teams Yardage Tufting Machine Operator Relationship Specialty Start Date End Date Lucie Gordon MD PCP - General Family Medicine 10/12/22 Rhett Mahmood DO [address] [address] Referring Physician Surgery 10/12/22 Judah Alcala MD [phone] [place] [address] Surgeon Colon and Rectal Surgery 11/27/22
== END 2025-03-12 10:23 | disposition home or self-care (01) ==
PROVIDERS: PCP Family Medicine; Visit Provider Family Medicine
DX: N43.3 Hydrocele, unspecified (principal)
CPT/HCPCS: 76870; 93976